=== PATIENT | male | born 1955 | race Caucasian/White ===

== ENCOUNTER 2017-02-28 18:38 | Emergency (ER) | payer OTHER ==
[~2017-02-28] VITALS: Ht 188 cm; Wt 112.0 kg
[2017-02-28] MEDS ORDERED: SPIR1CAP INH (18:46)
--- NOTE | 2017-02-28 22:30 | REPUSA ---
Clinical history: right groin region. Findings: Real-time ultrasound imaging of the right groin region was performed. There is a complex f luid collection at the site of concern, within the subcutaneous tissues, measuring 2.2 x 0.5 x 0.9 cm . Surrounding edema seen throughout the surrounding soft tissues. No evidence of calcifications are a ppreciated. No other gross abnormalities. Impression: Loculated luid collection in the subcutaneous tissues of the right groin, considered an a bscess until proven otherwise. Clinical correlation is recommended.
[2017-02-28] MEDS ORDERED: PIPERACILLIN/TAZOBACTAM SOD 3.375 GM in D5W MINI-BAG PLUS 50 ML IV ONE (22:45)
[2017-02-28] MEDS ORDERED: LIDOCAINE W/EPINEPHRINE 1% 20ML VIAL SC ONE (23:30)
[2017-03-01] MEDS ORDERED: AUGM500T34 PO (00:05)
[2017-03-01 00:12] VITALS: BP 116/71
== END 2017-03-01 00:38 | disposition home or self-care (01) ==
LOC: M ED 19:43
DX: L02.214 Cutaneous abscess of groin (principal); J44.9 Chronic obstructive pulmonary disease, unspecified; F17.200 Nicotine dependence, unspecified, uncomplicated; Z90.49 Acquired absence of other specified parts of digestive tract; Z79.51 Long term (current) use of inhaled steroids
CPT/HCPCS: 10060; 76857; 87070; 87077; 96374; 99283; J2543

== ENCOUNTER → 2017-04-12 | Outpatient (CLI) | payer OTHER ==
[~2017-04-12] VITALS: Ht 188 cm; Wt 113.4 kg
[~2017-04-12] MED LIST: AUGM500T34 PO; LIDOCAINE 2% INJ 100 MG/5 ML SDV (FOR ANES.) As Ordered ONE; NS 1,000 ML IV ONE; PROPOFOL 500 MG/50 ML VIAL As Ordered ONE; SPIR1CAP INH
--- NOTE | 2017-04-12 10:34 | ROOR ---
Patient Name: Siddhartha Sarkar Procedure Date: 04/12/2017 10:13 AM Date of : 1955 Age: 61 Room: [facility] Gender: Male Note Status: Finalized Procedure: Colonoscopy Indications: High risk colon cancer surveillance: Personal history of colonic polyps, Last colonoscopy: January 2014 Providers: Kristian EDWARDS MD Referring MD: BRIAN SANON JR, MD Requesting Provider: Medicines: Sedation Required Anesthesia Staff Assistance, Monitored Anesthesia Care Complications: No immediate complications. Procedure: Pre-Anesthesia Assessment: - The heart rate, respiratory rate, oxygen saturations, blood pressure, adequacy of pulmonary ventilation, and response to care were monitored throughout the procedure. The Colonoscope was introduced through the anus and advanced to the cecum, identified by appendiceal orifice and ileocecal valve. The colonoscopy was performed without difficulty. The patient tolerated the procedure well. The quality of the bowel preparation was good. Findings: The perianal and digital rectal examinations were normal. Two sessile polyps were found in the hepatic flexure and ascending colon. The polyps were diminutive in size. These polyps were removed with a cold snare. Resection and retrieval were complete. A 5 mm polyp was found in the sigmoid colon. The polyp was pedunculated. The polyp was removed with a hot snare. Resection and retrieval were complete. Small Internal Hemorrhoids. The exam was otherwise without abnormality on direct and retroflexion views. Impression: - Two diminutive polyps at the hepatic flexure and in the ascending colon, removed with a cold snare. Resected and retrieved. - One 5 mm polyp in the sigmoid colon, removed with a hot snare. Resected and retrieved. - Small Internal Hemorrhoids. - The examination was otherwise normal on direct and retroflexion views. Recommendation: - Repeat colonoscopy in 3 years for adenoma surveillance. Kristian Edwards MD Kristian EDWARDS MD 04/12/2017 10:34:27 AM This report has been signed electronically. Number of Addenda: 0 Note Initiated On: 04/12/2017 10:13 AM Estimated Blood Loss: Estimated blood loss: none.
[2017-04-12 10:58] VITALS: BP 142/77
== END ==
LOC: M OPP 08:28
PROVIDERS: ATTEND Internal Medicine Gastroenterology
DX: D12.2 Benign neoplasm of ascending colon (principal); D12.3 Benign neoplasm of transverse colon; D12.5 Benign neoplasm of sigmoid colon; K64.0 First degree hemorrhoids; Z86.010 Personal history of colon polyps; J44.9 Chronic obstructive pulmonary disease, unspecified; Z72.0 Tobacco use; Z79.899 Other long term (current) drug therapy

== ENCOUNTER → 2017-09-04 | Outpatient (CLI) | payer OTHER ==
[~2017-09-04] MED LIST changes: -LIDOCAINE 2% INJ 100 MG/5 ML SDV (FOR ANES.) As Ordered ONE; -NS 1,000 ML IV ONE; -PROPOFOL 500 MG/50 ML VIAL As Ordered ONE
--- NOTE | 2017-09-05 14:31 | REP ---
Clinical: Rib injury. Technique: Frontal view of the chest with multiple views of the left hemithorax. Findings: Frontal view of the chest demonstrates no acute cardiopulmonary process, contusion, effusion, or pneumothorax. Multiple views of the left hemithorax demonstrates no obvious or displaced rib fracture. However, a subtle injury involving the lateral aspect of the seventh rib cannot be excluded. Impression: No definite or displaced rib fracture. Cannot exclude subtle injury involving the lateral aspect of the seventh rib. Signed by Diego Abdi MD 09/04/2017 11:16 P
== END ==
LOC: M WUC 17:01
PROVIDERS: ATTEND Physician Assistant
DX: S20.20XA Contusion of thorax, unspecified, initial encounter (principal); X58.XXXA Exposure to other specified factors, initial encounter; Y92.89 Other specified places as the place of occurrence of the external cause; Y93.89 Activity, other specified; Y99.8 Other external cause status

== ENCOUNTER → 2018-05-28 | Outpatient (CLI) | payer OTHER ==
[~2018-05-28] MED LIST changes: -AUGM500T34 PO; +GASTROGRAFIN SOLUTION 30ML (Q9963) As Ordered; +ISOVUE-370 76% 100ML VIAL (Q9967) As Ordered; -SPIR1CAP INH
== END ==
LOC: M RAD 12:14
DX: D75.1 Secondary polycythemia (principal)
CPT/HCPCS: Q9963

== ENCOUNTER → 2018-06-03 | Outpatient (REF) | payer OTHER ==
[2018-06-03 13:31] LABS: CARBOXYHEMOGLOBIN 5.5 % (0.0-1.5)
== END ==
LOC: M LAB REF 13:23
DX: D75.1 Secondary polycythemia (principal); F17.200 Nicotine dependence, unspecified, uncomplicated

== ENCOUNTER 2018-06-27 08:56 | Emergency (ER) | payer OTHER | END 2018-06-27 10:21 | disposition home or self-care (01) | LOC: M ED 08:56 | DX: S06.0X0A Concussion without loss of consciousness, initial encounter (principal); W10.9XXA Fall (on) (from) unspecified stairs and steps, initial encounter; Y92.009 Unspecified place in unspecified non-institutional (private) residence as the place of occurrence of the external cause; J44.9 Chronic obstructive pulmonary disease, unspecified; D75.1 Secondary polycythemia; F17.210 Nicotine dependence, cigarettes, uncomplicated; Z98.890 Other specified postprocedural states; Z79.82 Long term (current) use of aspirin | CPT/HCPCS: 70450 ==

== ENCOUNTER → 2019-06-09 | Outpatient (CLI) | payer OTHER ==
[~2019-06-09] MED LIST changes: +ASPI81CH33 PO; +AUGM500T34 PO; -GASTROGRAFIN SOLUTION 30ML (Q9963) As Ordered; -ISOVUE-370 76% 100ML VIAL (Q9967) As Ordered; +SPIR1CAP INH
--- NOTE | 2019-06-10 01:43 | REP ---
Clinical: Lower back pain. Technique: AP, lateral, bilateral oblique and coned-down views of the lumbosacral spine. Findings: Age-related osteopenia and chronic anterolisthesis at the L3-4 level along with moderate multilevel degenerative changes remain stable as compared to the CT dated 05/28/2018. Subtle chronic compression deformity at T11 also appears chronic/nonacute. No obvious acute fracture / compression injury or subluxation noted. Impression: Moderate osteopenia and chronic degenerative changes remain essentially stable compared to 05/28/2018. No new acute fracture / compression injury or subluxation identified. Electronically Signed by Diego Abdi MD 06/10/2019 01:35 A
== END ==
LOC: M WUC 15:59
PROVIDERS: ATTEND Nurse Practitioner Family
DX: M54.5 Low back pain (principal)

== ENCOUNTER 2020-03-05 08:05 | Emergency (ER) | payer OTHER ==
[~2020-03-05] VITALS: Ht 188 cm; Wt 113.6 kg
[2020-03-05] MEDS ORDERED: INCR1INH (08:14)
[2020-03-05] MEDS ORDERED: KETOROLAC 30 MG/ML 1ML VIAL IV ONE (08:15)
[2020-03-05] MEDS ORDERED: diazePAM 10MG/2ML SYRINGE (J3360 PER 5MG) IV ONE (08:15)
[2020-03-05] MEDS ORDERED: VALI2TAB PO (09:49)
[2020-03-05] MEDS ORDERED: NAPR250T4 PO (09:50)
[2020-03-05 10:13] VITALS: BP 135/88
== END 2020-03-05 10:14 | disposition home or self-care (01) ==
LOC: EDBD 08:05 → M ED 08:05
DX: S29.012A Strain of muscle and tendon of back wall of thorax, initial encounter (principal); X50.3XXA Overexertion from repetitive movements, initial encounter; Y92.096 Garden or yard of other non-institutional residence as the place of occurrence of the external cause; J44.9 Chronic obstructive pulmonary disease, unspecified; D75.1 Secondary polycythemia; F17.200 Nicotine dependence, unspecified, uncomplicated; Z79.82 Long term (current) use of aspirin
CPT/HCPCS: 96374; 96375; 99284; J1885; J3360

== ENCOUNTER → 2020-10-17 | Outpatient (CLI) | payer OTHER ==
[~2020-10-17] MED LIST changes: +INCR1INH; +NAPR250T4 PO; +VALI2TAB PO
== END ==
LOC: M LABSMTC 08:08
PROVIDERS: ATTEND Anesthesiology
DX: Z01.812 Encounter for preprocedural laboratory examination (principal); Z20.822 Contact with and (suspected) exposure to COVID-19

== ENCOUNTER 2020-10-22 08:59 | Day surgery (SDC) | payer OTHER ==
[~2020-10-22] VITALS: Ht 188 cm; Wt 117.0 kg
[~2020-10-22 08:59] MED LIST changes: +NS 1,000 ML IV ONE
--- OUTSIDE RECORDS SUMMARY | 2020-10-22 09:07 | CCD | Continuity of Care Document ---
Author Author Siddhartha Cooper MD Organization Unknown Address [address] [facility] [address] [place] [address] Phone [phone] Care Team Providers Care Countersinker Name Role Phone Suresh Cooper JR, MD AUTM Unavailable Problems Active Problems Provider Date Obesity Suresh Cooper MD Onset: 03/31/2013 Benign neoplasm of colon Suresh Cooper MD Onset: 2012 Social History Type Date Description Comments Sex Unknown ETOH Use Drinks 2 Alcoholic Beverages Per Day LIQUOR Tobacco Use Start: Unknown Patient is a current smoker, smo kes every day PACK/DAY Allergies, Adverse Reactions, Alerts Description No Known Drug Allergies Medications Active Medications SIG Qnty Indications Ordering Provide r Date Aspir-Low 81mg Tablets DR 1 by mouth every day Suresh Cooper MD 07/14/2019 Incruse Ellipta 62.5mcg/Inh Aeroso l Inhale One puff By Mouth Every Day 90units SHAWNA Fonseca JR 03/13/2019 No OTC Meds Suresh Cooper MD Medications Administered in Office Medication SIG Qnty Indications Ordering Provider Date Immunization Adminstration,1 Vaccine/Tox oid Injection Suresh Cooper MD 2019 Immunizations CPT Code Status Date Vaccine Lot # [id number] Given 07/16/2020 Influenza Vaccin e Quadrivalent Preser/Antibiotic Free Im Use [id number] Given 07/14/2019 Influenza Vaccin e Quadrivalent Preser/Antibiotic Free Im Use [id number] Vital Signs Date Vital Result Comment 07/16/2020 1:54pm BP Systolic 136 mmHg BP Diastolic 80 mmHg Heart Rate 72 /min Height 73.25 inches 6'1.25" Weight 256.00 lb BMI (Body Mass Index) 33.5 kg/m2 07/14/2019 3:00pm BP Systolic 130 mmHg BP Diastolic 78 mmHg Heart Rate 72 /min Height 73.25 inches 6'1.25" Weight 249.00 lb BMI (Body Mass Index) 32.6 kg/m2 Results Test Acquired Date Facility Test Result H/L Range Note Complete Blood Count 07/16/2020 [facility] [place]: [place] [address] [phone] WBC 8.7 x10*3/UL 4.1 - 10.9 1 RBC 5.36 x10*6/UL 4.20 - 6.30 Hemoglobin 19.0 g/dL High 12.0 - 18.0 Hematocrit 56.0 % High 37.0 - 51.0 MCV 104.4 fL High 80.0 - 97.0 MCH 35.5 pg High 26.0 - 32.0 MCHC 34.0 g/dL 31.0 - 38.0 RDW 13.9 % High 11.6 - 13.7 PLT 240 x10*3/UL 140 - 440 MPV 7.4 FL Low 7.8 - 11.0 Lymph % 18.9 % 10.0 - 58.5 Mid % 5.0 % 1.7 - 9.3 Neut % 76.1 % 37.0 - 92.0 Lymph # 1.6 x10*3/UL 0.6 - 4.1 Mid # 0.5 x10*3/UL 0.1 - 0.6 Neut # 6.6 x10*3/UL 2.0 - 7.8 A1c 07/16/2020 [facility] [place]: [place] [address] [phone] Hba1c 5.5 % <5.7 2 Est Avg Glucose 111 mg/dL High 60 - 110 Comprehensive Chem Profile 07/16/2020 [facility] [place]: [place] [address] [phone] Glucose 112 mg/dL High 74 - 99 3 BUN 10 mg/dL 7 - 18 Creatinine 1.1 mg/dL 0.6 - 1.3 Sodium 136 mEq/L 136 - 145 Potassium 3.8 mEq/L 3.5 - 5.1 Chloride 99 mEq/L 98 - 107 Carbon Dioxide 32 mEq/L 21 - 32 Calcium 8.8 mg/dL 8.5 - 10.1 Alk. Phosphatase 76 mg/dL 46 - 116 Total Bilirubin 1.9 mg/dL High 0.2 - 1.0 4 Ast (Sgot) 59 U/L High 15 - 37 Alt (SGPT) 64 U/L 12 - 78 Albumin 3.8 g/dL 3.4 - 5.0 Total Protein 7.4 g/dL 6.4 - 8.2 A/G Ratio 1.06 CALC 1.00 - 1.90 GFR >= 60 mL/min >60 GFR >= 60 mL/min >60 5 Lipid Profile 07/16/2020 [facility] [employer] [place]: [place] [address] [phone] Cholesterol 194 mg/dL 131 - 200 Triglycerides 154 mg/dL High 30 - 150 HDL Cholesterol 48 mg/dL 35 - 60 LDL (Calculated) 115 CALC 50 - 159 Laboratory test finding 07/16/2020 [facility] [employer] [place]: [place] [address] [phone] PSA 1.80 ng/mL <4.00 6 1 NOTE: RESULT VERIFIED. 2 Lab Result Notes: Pre-Diabetes 5.7 - 6.4 % Diabetes = or > 6.5% 3 100-125 mg/dL PRE-DIABET ES/FASTING >126 mg/dL DIABETES/FASTING 4 NOTE: T.BILI,AST, VERIFIED 5 CHRONIC KIDNEY DISEASE STAGI NG PER NKF STAGE I & II GFR >= 60 NORMAL TO MILDLY DECREASED STAGE III GFR 30-59 MODERATELY DECREASED STAGE IV GFR 15-29 SEVERELY DECREASED STAGE V GFR <15 VERY LITTLE GFR LEFT ESRD GFR <15 ON POINT OF CARE TECHNICIAN 6 This assay was performed on the Siemens Dimension EXL using the B- Galactosidase/CPRG methodology and should not be compared interchangeably with other methods. The PSA should not be used alone as a screening test for the presence or absence of malignant disease. Procedures Date Code Description Status 07/16/2020 92698 EKG/Interpretation & Report Comp leted 04/12/2017 [id number] Colonoscopy Completed 02/13/2014 [id number] Colonoscopy Completed Medical Devices Description No Information Available Encounters Type Date Location Provider Dx Diagnosis Office Visit 07/16/2020 2:00p [facility] Suresh Cooper MD Z00.01 Encounter for general adult medical exam w abnormal findings R73.09 Other abnormal glucose E78.1 Pure hyperglyceridemia J44.9 Chronic obstructive pulmonar y disease, unspecified F17.210 Nicotine dependence, cigaret stan, uncomplicated Z71.6 Tobacco abuse counseling D75.1 Secondary polycythemia Z12.5 Encounter for screening for malignant neoplasm of prostate E66.09 Other obesity due to excess calories Z68.33 Body mass index [BMI] 33.0-3 3.9, adult Z23 Encounter for immunization Assessments Date Code Description Provider 07/16/2020 Z00.01 Encounter for genera l adult medical examination with abnormal findings Suresh Cooper MD 07/16/2020 R73.09 Other abnormal glucose Suresh Cooper MD 07/16/2020 E78.1 Pure hyperglyceridemia Suresh Cooper MD 07/16/2020 J44.9 Chronic obstructive pulmonary di sease, unspecified Suresh Cooper MD 07/16/2020 F17.210 Nicotine dependence, cigarettes, uncomplicated Suresh Cooper MD 07/16/2020 Z71.6 Tobacco abuse counseling Suresh Cooper MD 07/16/2020 D75.1 Secondary polycythemia Suresh Cooper MD 07/16/2020 Z12.5 Encounter for screening for deana gnant neoplasm of prostate Suresh Cooper MD 07/16/2020 E66.09 Other obesity due to excess rangel lalo Suresh Cooper MD 07/16/2020 Z68.33 Body mass index [BMI] 33.0-33.9, adult Suresh Cooper MD 07/16/2020 Z23 Encounter for immunization Colli tristan Cooper MD Plan of Treatment Future Appointment(s):* 07/18/2021 11:00 am - Suresh Cooper MD at [facility] 07/16/2020 - Suresh Cooper MD* Z00.01 Encounter for general adult medical examination with abnormal findings * R73.09 Other abnormal glucose * E78.1 Pure hyperglyceridemia * J44.9 Chronic obstructive pulmonary disease, unspecified * F17.210 Nicotine dependence, cigarettes, uncomplicated* Comments:* Smoking cessation discussed. 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
--- OUTSIDE RECORDS SUMMARY | 2020-10-22 09:08 | CCD ---
Author Author [facility] Organization [facility] Address Unknown Phone Unavailable Care Team Providers Care Residential Substance Abuse Counselor Name Role Phone Prince Cooper MD Unavailable Unavailable Prince Cooper MD Unavailable Unavailable Prince Cooper MD Unavailable Unavailable Prince Cooper MD Unavailable Unavailable Prince Cooper MD Unavailable Unavailable Prince Cooper MD Unavailable Unavailable Prince Cooper MD Unavailable Unavailable Prince Cooper MD Unavailable Unavailable Prince Cooper MD Unavailable Unavailable Prince Cooper MD Unavailable Unavailable Prince Cooper MD Unavailable Unavailable Prince Cooper MD Unavailable Unavailable Prince Cooper MD Unavailable Unavailable Prince Cooper MD Unavailable Unavailable Prince Cooper MD Unavailable Unavailable Prince Cooper MD Unavailable Unavailable Prince Cooper MD Unavailable Unavailable Prince Cooper MD Unavailable Unavailable Prince Cooper MD Unavailable Unavailable Prince Cooper MD Unavailable Unavailable Prince Cooper MD Unavailable Unavailable Prince Cooper MD Unavailable Unavailable Vega BajaPrince MD Unavailable Unavailable KennethPrince MD Unavailable Unavailable Vega BajaPrince MD Unavailable Unavailable Vega BajaPrince MD Unavailable Unavailable KennethPrince MD Unavailable Unavailable Vega BajaPrince MD Unavailable Unavailable Vega BajaPrince MD Unavailable Unavailable Vega BajaPrince MD Unavailable Unavailable Vega BajaPrince MD Unavailable Unavailable Vega BajaPrince MD Unavailable Unavailable Vega BajaPrince MD Unavailable Unavailable Vega BajaPrince MD Unavailable Unavailable Vega BajaPrince MD Unavailable Unavailable KennethPrince MD Unavailable Unavailable KennethPrince MD Unavailable Unavailable KennethPrince MD Unavailable Unavailable Vega BajaPrince MD Unavailable Unavailable Vega BajaPrince MD Unavailable Unavailable Vega BajaPrince MD Unavailable Unavailable KennethPrince MD Unavailable Unavailable KennethPrince MD Unavailable Unavailable Vega BajaPrince MD Unavailable Unavailable Vega BajaPrince MD Unavailable Unavailable KennethPrince MD Unavailable Unavailable KennethPrince MD Unavailable Unavailable Vega BajaPrince MD Unavailable Unavailable KennethPrince MD Unavailable Unavailable KennethPrince MD Unavailable Unavailable KennethPrince MD Unavailable Unavailable KennethPrince MD Unavailable Unavailable Vega BajaPrince MD Unavailable Unavailable KennethPrince MD Unavailable Unavailable KennethPrince MD Unavailable Unavailable Vega BajaPrince MD Unavailable Unavailable KennethPrince MD Unavailable Unavailable KennethPrince layne MD Unavailable Unavailable Vega BajaPrince layne MD Unavailable Unavailable KennethPrince MD Unavailable Unavailable KennethPrince layne MD Unavailable Unavailable KennethPrince MD Unavailable Unavailable Vega BajaPrince MD Unavailable Unavailable KennethPrince layne MD Unavailable Unavailable KennethPrince layne MD Unavailable Unavailable Vega BajaPrince layne MD Unavailable Unavailable Vega BajaPrince MD Unavailable Unavailable Vega BajaPrince MD Unavailable Unavailable KennethPrince MD Unavailable Unavailable Vega BajaPrince MD Unavailable Unavailable Vega BajaPrince MD Unavailable Unavailable Vega BajaPrince MD Unavailable Unavailable Vega BajaPrince MD Unavailable Unavailable Vega BajaPrince MD Unavailable Unavailable KennethPrince MD Unavailable Unavailable Vega BajaPrince MD Unavailable Unavailable Vega BajaPrince MD Unavailable Unavailable Vega BajaPrince MD Unavailable Unavailable Kenneth, Prince Suresh ELLINGTON Unavailable Unavailable Kenneth, Prince Suresh ELLINGTON Unavailable Unavailable Kenneth, Prince Suresh ELLINGTON Unavailable Unavailable Kenneth, Prince Suresh ELLINGTON Unavailable Unavailable Vega Baja, Prince Suresh ELLINGTON Unavailable Unavailable Kenneth, Prince Suresh ELLINGTON Unavailable Unavailable Vega Baja, Prince Suresh ELLINGTON Unavailable Unavailable Vega Baja, Prince Suresh ELLINGTON Unavailable Unavailable LETTIERE, A ZOHREH PA Unavailable Unavailable LETTIERE, A ZOHREH PA Unavailable Unavailable LETTIERE, A ZOHREH PA Unavailable Unavailable LETTIERE, A ZOHREH PA Unavailable Unavailable LETTIERE, A ZOHREH PA Unavailable Unavailable LETTIERE, A ZOHREH PA Unavailable Unavailable LETTIERE, A ZOHREH PA Unavailable Unavailable LETTIERE, A ZOHREH PA Unavailable Unavailable LETTIERE, A ZOHREH PA Unavailable Unavailable LETTIERE, A ZOHREH PA Unavailable Unavailable LETTIERE, A ZOHREH PA Unavailable Unavailable LETTIERE, A ZOHREH PA Unavailable Unavailable LETTIERE, A ZOHREH PA Unavailable Unavailable LETTIERE, A ZOHREH PA Unavailable Unavailable LETTIERE, A ZOHREH PA Unavailable Unavailable LETTIERE, A ZOHREH PA Unavailable Unavailable LETTIERE, A ZOHREH PA Unavailable Unavailable LETTIERE, A ZOHREH PA Unavailable Unavailable LETTIERE, A ZOHREH PA Unavailable Unavailable LETTIERE, A ZOHREH PA Unavailable Unavailable LETTIERE, A ZOHREH PA Unavailable Unavailable LETTIERE, A ZOHREH PA Unavailable Unavailable LETTIERE, A ZOHREH PA Unavailable Unavailable LETTIERE, A ZOHREH PA Unavailable Unavailable LETTIERE, A ZOHREH PA Unavailable Unavailable LETTIERE, A ZOHREH PA Unavailable Unavailable LETTIERE, A ZOHREH PA Unavailable Unavailable LETTIERE, A ZOHREH PA Unavailable Unavailable LETTIERE, A ZOHREH PA Unavailable Unavailable Re-disclosure Warning The records that you are about to access may contain information from federally-assisted alcohol or drug abuse programs. If such information is present, then the following federally mandated warning applies: This information has been disclosed to you from records protected by federal confidentiality rules (42 CFR part 2). The federal rules prohibit you from making any further disclosure of this information unless further disclosure is expressly permitted by the written consent of the person to whom it pertains or as otherwise permitted by 42 CFR part 2. A general authorization for the release of medical or other information is NOT sufficient for this purpose. The Federal rules restrict any use of the information to criminally investigate or prosecute any alcohol or drug abuse patient.The records that you are about to access may contain highly sensitive health information, the redisclosure of which is protected by Article 27-F of the [facility] Public Health law. If you continue you may have access to information: Regarding HIV / AIDS; Provided by facilities licensed or operated by the [facility] Office of Mental Health; or Provided by the [facility] Office for People With Developmental Disabilities. If such information is present, then the following [facility] mandated warning applies: This information has been disclosed to you from confidential records which are protected by state law. State law prohibits you from making any further disclosure of this information without the specific written consent of the person to whom it pertains, or as otherwise permitted by law. Any unauthorized further disclosure in violation of state law may result in a fine or penitentiary sentence or both. A general authorization for the release of medical or other information is NOT sufficient authorization for further disc losure. Family History Family Member Name Family Member Gender Family Member Status Date o f Status Description Data Source(s) Unknown Unknown Problem [facility] ([facility]) father (colon, skin, prostate) Unknown Unknown Problem [facility] ([facility]) Unknown Female Problem [facility] ([facility]) Unknown Unknown Encounters Encounter Providers Location Date Indications Data Source(s ) Outpatient Attender: Suresh Hilton 02:00:00 PM EDT [facility] ([facility] ) Outpatient Attender: ZOHREH terrazas 08/26/2019 11:00:00 AM EST [facility] ([facility]) Immunizations Vaccine Date Status Description Data Source(s) Influenza, injectable, MDCK, preservative free, eren valent 07/16/2020 02:07:00 PM EDT completed [facility] ([facility]) Medications Medication Brand Name Start Date Product Form Dose Route Admi nistrative Instructions Pharmacy Instructions Status Indications Reaction Description Data Source(s) Immunization Adminstration,1 Vaccine/Toxoid 07/16/2020 12:00 :00 AM EDT completed [facility] ([facility]) Medication administered onsite 17 gram/dose 05/07/2020 12:00:00 AM EDT powder 510 USE 17GM BY MOUTH ONCE DAILY USE 17GM BY MOUTH ONCE DAILY SOLD: 05/10/2020 [facility] 17.5-3.13-1.6 gram 05/07/2020 12:00:00 AM EDT recon soln 354 TAKE PER DOCTORS BOWEL PREP INSTRUCTIONS TAKE PER DOCTORS BOWEL PREP INSTRUCTIONS SOLD: 05/10/2020 [facility] Magnesium Hydroxide 80 MG/ML Oral Suspension Milk Of Magnesi a 05/07/2020 12:00:00 AM EDT ORAL active M EDENT ([facility], ) POLYETHYLENE GLYCOL 3350 142 MG/ML Oral Solution [Miralax] M iralax 05/07/2020 12:00:00 AM EDT ORAL active M EDENT ([facility], ) Suprep Bowel Prep Kit Suprep Bowel Prep Kit 05/07/2020 12:00:00 AM EDT active [facility] ([facility], ) 62.5 mcg/actuation 04/12/2020 12:00:00 AM EDT blister with d evice 30 INHALE ONE PUFF BY MOUTH EVERY DAY INHALE ONE PUFF BY MOUTH EVERY DAY SOLD: 08/27/2020 [facility] 62.5 mcg/actuation 04/12/2020 12:00:00 AM EDT blister with d evice 30 INHALE ONE PUFF BY MOUTH EVERY DAY INHALE ONE PUFF BY MOUTH EVERY DAY SOLD: 04/15/2020 [facility] 250 mg 03/05/2020 12:00:00 AM EDT tablet 14 TAKE ONE TABLET BY MOUTH TWICE A DAY NEEDED FOR PAIN TAKE ONE TABLET BY MOUTH TWICE A DAY NEEDED FOR DALY N SOLD: 03/05/2020 [facility] 2 mg 03/05/2020 12:00:00 AM EDT tablet 6 TAKE ONE TABLET BY MOUTH TWICE A DAY NEEDED FOR ANXIETY MAXIMUM DAILY DOSE = 2 TABLETS TAKE ONE TABLET BY MOUTH TWICE A DAY NEEDED FOR ANXIETY MAXIMUM DAILY DOSE = 2 TABLETS SOLD: 03/05/2020 [facility] Prednisone 20 MG Oral Tablet Prednisone 08/26/2019 12:00:00 AM EST active [facility] ([facility]) 20 mg 08/26/2019 12:00:00 AM EST tablet 18 TAKE ONE TABLET BY MOUTH THREE TIMES A DAY FOR 3 DAYS THEN 1 TWO TIMES A DAY FOR 3 DAYS THEN 1 ONCE DAILY FOR 3 DAYS TAKE ONE TABLET BY MOUTH THREE TIMES A D AY FOR 3 DAYS THEN 1 TWO TIMES A DAY FOR 3 DAYS THEN 1 ONCE DAILY FOR 3 DAYS SOLD: 08/26/2019 [facility] Doxycycline Monohydrate 100 MG Oral Tablet Doxycycline Monoh ydrate 08/26/2019 12:00:00 AM EST ORAL active M SIND[facility] ([facility]) 100 mg 08/26/2019 12:00:00 AM EST tablet 20 TAKE ONE TABLET BY MOUTH TWICE A DAY FOR 10 DAYS TAKE ONE TABLET BY MOUTH TWICE A DAY FOR 10 DAYS SOLD: 08/26/2019 [facility] 62.5 mcg/actuation 03/21/2019 12:00:00 AM EDT blister with d evice 90 INHALE ONE PUFF BY MOUTH EVERY DAY INHALE ONE PUFF BY MOUTH EVERY DAY SOLD: 08/26/2019 [facility] 62.5 mcg/actuation 03/21/2019 12:00:00 AM EDT blister with d evice 90 INHALE ONE PUFF BY MOUTH EVERY DAY INHALE ONE PUFF BY MOUTH EVERY DAY SOLD: 01/05/2020 [facility] Insurance Providers Payer name Policy type / Coverage type Policy ID Covered alliance party ID Covered alliance party's relationship to baugh Policy Baugh Plan Information [facility] [id number] WI2 [id number] UMR O [id number] S [id number] UMR U [id number] Spouse [id number] [facility] [id number] WI2 [id number] [place]/[employer] (Old) Medigap Part B [id number] Family Dependent [id number] Umr (New [place]) Commercial [id number] Family Dependent [id number] UMR U [id number] Spouse [id number] [place] (pr) Medigap Part B [id number] Family Dependent [id number] Umr (pr) Commercial [id number] Fa brianna Dependent [id number] Umr [place] Ppo Commercial [id number] Family Dependent [id number] POMCO [id number] WI2 [id number] [place] Commercial [id number] Family Dependent [id number] POMCO [id number] WI2 [id number] [place] Ppo Commercial [id number] Family Dependent [id number] [place] Ppo Commercial [id number] Family Dependent [id number] [place] Ppo Commercial [id number] Family Dependent [id number] [place] [employer] (HMO) [id number] Fa brianna Dependent [id number] [place] (pr) Commercial Self [place] Ppo Commercial [id number] Family Dependent [phone] POMCO [id number] WI2 [id number] [place] Commercial Family Dependent [employer] PPO P [id number] P [id number] [employer]-O/P [id number] 01 [id number] Surgeries/Procedures Procedure Description Date Indications Data Source(s) ECG ROUTINE ECG W/LEAST 12 LDS W/I&R 07/16/2020 12:00: 00 AM EDT [facility] ([facility]) Results ID Date Data Source [id number] 10/17/2020 08:20:00 AM EST [facility] Name Value Range Interpretation Code Description Data Lisa rce(s) Supporting Document(s) SARS coronavirus 2 RNA Not Detected [facility] [place] This lab was ordered by [facility] and reported by [facility]. ID Date Data Source [id number] 07/16/2020 02:35:00 PM EDT [facility] Name Value Range Interpretation Code Description Data Lisa rce(s) Supporting Document(s) Prostate specific Ag [Mass/volume] in Serum or Plasma 1.80 ng/mL [facility] ([facility]) This assay was performed on the Siemens Dimension EXL using the B- Galactosidase/CPRG methodology and should not be compared interchangeably with other methods. The PSA should not be used alone as a screening test for the presence or absence of malignant disease. ID Date Data Source [id number] 07/16/2020 02:35:00 PM EDT [facility] ([facility]) Name Value Range Interpretation Code Description Data Lisa rce(s) Supporting Document(s) Cholesterol [Mass/volume] in Serum or Plasma 194 mg/dL 131-200 [facility] ([facility]) Cholesterol in LDL [Mass/volume] in Serum or Plasma by calcu lation 115 CALC 50-159 [facility] ([facility]) Triglyceride [Mass/volume] in Serum or Plasma 154 mg/dL 30-150 [facility] ([facility]) Cholesterol in HDL [Mass/volume] in Serum or Plasma 48 mg/dL 35-60 [facility] ([facility]) ID Date Data Source [id number] 07/16/2020 02:35:00 PM EDT [facility] ([facility]) Name Value Range Interpretation Code Description Data Lisa rce(s) Supporting Document(s) Urea nitrogen [Mass/volume] in Serum or Plasma 10 mg/dL 7-18 [facility] ([facility]) Glucose [Mass/volume] in Serum or Plasma 112 mg/dL 74-99 [facility] ([facility]) 100-125 mg/dL PRE-DIABETES/FASTING >126 mg/dL DIABETES/FASTING Creatinine 1.1 mg/dL 0.6-1.3 [facility] ([facility]) Sodium [Moles/volume] in Serum or Plasma 136 meq/L 136-145 [facility] ([facility]) Potassium [Moles/volume] in Serum or Plasma 3.8 meq/L 3.5-5.1 [facility] ([facility]) Carbon dioxide, total [Moles/volume] in Serum or Plasma 32 meq/L 21 -32 [facility] ([facility]) Chloride [Moles/volume] in Serum or Plasma 99 meq/L 98-107 [facility] ([facility]) Calcium [Mass/volume] in Serum or Plasma 8.8 mg/dL 8.5-10.1 [facility] ([facility]) Alkaline phosphatase isoenzyme [Units/volume] in Serum or Pl asma 76 mg/dL 46-116 [facility] ([facility]) Aspartate aminotransferase [Enzymatic activity/volume] in Serum or Plasma 59 U/L 15-37 [facility] ([facility] ) Total Bilirubin 1.9 mg/dL 0.2-1.0 [facility] ([facility]) NOTE: T.BILI,AST, VERIFIED Alanine aminotransferase [Enzymatic activity/volume] in Seru m or Plasma 64 U/L 12-78 [facility] ([facility]) Proteinase 3 Ab [Units/volume] in Serum 7.4 g/dL 6.4-8.2 [facility] ([facility]) Albumin [Mass/volume] in Serum or Plasma 3.8 g/dL 3.4-5.0 [facility] ([facility]) A/G Ratio 1.06 CALC 1.00-1.90 [facility] ([facility]) Glomerular filtration rate/1.73 sq M pre dicted among non-blacks [Volume Rate/Area] in Serum or Plasma by Creatinine-based formula (MDRD) Laboratory test result [facility] ([facility] Glomerular filtration rate/1.73 sq M pre dicted among blacks [Volume Rate/Area] in Serum or Plasma by Creatinine-based formula (MDRD) Laboratory test result [facility] ([facility]) <content>CHRONIC KIDNEY DISEASE STAGING PER NKF</content>
<content></content>
<content>STAGE I & II GFR >= 60 NORMAL TO MILDLY DECREASED</content>
<content>STAGE III GFR 30-59 MODERATELY DECREASED</content>
<content>STAGE IV GFR 15-29 SEVERELY DECREASED</content>
<content>STAGE V GFR <15 VERY LITTLE GFR LEFT</content>
<content>ESRD GFR <15 ON SOFTWARE DEVELOPMENT ENGINEER</content>
<content></content> ID Date Data Source [id number] 07/16/2020 02:35:00 PM EDT [facility] ([facility] Name Value Range Interpretation Code Description Data Lisa rce(s) Supporting Document(s) Glucose mean value [Mass/volume] in Blood Estimated fr om glycated hemoglobin 111 mg/dL 60-110 [facility] ([facility] ) Hemoglobin A1c/Hemoglobin.total in Blood 5.5 % [facility] ([facility]) Lab Result Notes: Pre-Diabetes 5.7 - 6.4 % Diabetes = or > 6.5% ID Date Data Source [id number] 07/16/2020 02:35:00 PM EDT [facility]) Name Value Range Interpretation Code Description Data Lisa rce(s) Supporting Document(s) Leukocytes [#/volume] in Blood by Automated count 8.7 x10*3/UL 4.1-10 .9 [facility] ([facility] NOTE: RESULT VERIFIED. Erythrocytes [#/volume] in Blood by Automated count 5.36 x10*6/UL 4.2 0-6.30 [facility] ([facility]) Hemoglobin [Mass/volume] in Blood 19.0 g/dL 12.0-18.0 [facility] ([facility]) MCV 104.4 fL 80.0-97.0 [facility] ([facility]) Hematocrit [Volume Fraction] of Blood by Automated count 56.0 % 3 7.0-51.0 [facility] ([facility]) MCH 35.5 pg 26.0-32.0 [facility] ([facility]) Erythrocyte distribution width [Ratio] by Automated count 13.9 % 11.6-13.7 [facility] ([facility]) MCHC 34.0 g/dL 31.0-38.0 [facility] ([facility]) MPV 7.4 FL 7.8-11.0 [facility] ([facility]) Mid % 5.0 % 1.7-9.3 [facility] ([facility]) Platelets [#/volume] in Blood by Automated count 240 x10*3/UL 140-440 [facility] ([facility]) Lymph % 18.9 % 10.0-58.5 [facility] ([facility]) Mid # 0.5 x10*3/UL 0.1-0.6 [facility] ([facility]) Lymph # 1.6 x10*3/UL 0.6-4.1 [facility] ([facility]) Neut % 76.1 % 37.0-92.0 [facility] ([facility]) Neut # 6.6 x10*3/UL 2.0-7.8 [facility] ([facility]) Procedure Vital Signs ID Date Data Source UNK Name Value Range Interpretation Code Description Data Source(s) Body mass index (BMI) [Ratio] 33.5 kg/m2 33.5 k g/m2 [facility] ([facility]) Body weight 256.00 [lb_av] 256.00 [lb_av] [facility] T ([facility]) Body height 73.25 [in_i] 73.25 [in_i] [facility] ([facility]) 6'1.25" Heart rate 72 /min 72 /min [facility] ([facility]) Diastolic blood pressure 80 mm[Hg] 80 mm[Hg] [facility] ([facility]) Systolic blood pressure 136 mm[Hg] 136 mm[Hg] [facility] ([facility]) Body weight 114.307 kg 114.307 kg [facility] ([facility]) Body mass index (BMI) [Ratio] 32.4 kg/m2 32.4 k g/m2 [facility] ([facility]) Body weight 252.00 [lb_av] 252.00 [lb_av] [facility] T ([facility]) Body height 74 [in_i] 74 [in_i] [facility] ([facility]) 6'2" Diastolic blood pressure 82 mm[Hg] 82 mm[Hg] [facility] ([facility]) Systolic blood pressure 138 mm[Hg] 138 mm[Hg] [facility] ([facility]) Body mass index (BMI) [Ratio] 32.1 kg/m2 32.1 k g/m2 [facility] ([facility]) Body height 74 [in_i] 74 [in_i] [facility] ([facility]) 6'2" Body weight 250.00 [lb_av] 250.00 [lb_av] [facility] T ([facility]) Body temperature 97.0 [degF] 97.0 [degF] [facility] ([facility]) Oxygen saturation in Arterial blood by Pulse oximetry 98 % 98 % [facility] ([facility], [facility]) Respiratory rate 16 /min 16 /min [facility] ( [facility]) Heart rate 59 /min 59 /min [facility] ([facility]) Diastolic blood pressure 84 mm[Hg] 84 mm[Hg] [facility] ([facility]) Systolic blood pressure 139 mm[Hg] 139 mm[Hg] [facility] ([facility])
--- NOTE | 2020-10-22 11:29 | ROOR ---
Patient Name: Siddhartha Sarkar Procedure Date: 10/22/2020 11:02 AM Date of : 1955 Age: 65 Room: [facility] Gender: Male Note Status: Finalized Procedure: Colonoscopy Indications: High risk colon cancer surveillance: Personal history of colonic polyps, Last colonoscopy: March 2017 Providers: Kristian EDWARDS MD Referring MD: BRIAN SANON JR, MD Requesting Provider: Medicines: Monitored Anesthesia Care Complications: No immediate complications. Procedure: Pre-Anesthesia Assessment: - The heart rate, respiratory rate, oxygen saturations, blood pressure, adequacy of pulmonary ventilation, and response to care were monitored throughout the procedure. The Colonoscope was introduced through the anus and advanced to the terminal ileum, with identification of the appendiceal orifice and IC valve. The colonoscopy was performed without difficulty. The patient tolerated the procedure well. The quality of the bowel preparation was good. Findings: The perianal and digital rectal examinations were normal. Internal hemorrhoids were found during retroflexion. The hemorrhoids were moderate. Two sessile polyps were found in the descending colon and transverse colon. The polyps were 5 to 7 mm in size. The exam was otherwise without abnormality on direct and retroflexion views. Impression: - Two 5 to 7 mm polyps in the descending colon and in the transverse colon. - Internal hemorrhoids. 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 (incidental) - The examination was otherwise normal on direct and retroflexion views. - No specimens collected. Recommendation: - Repeat colonoscopy in 3 years for surveillance. Procedure Code(s): --- Professional --- 74137, Colonoscopy, flexible; diagnostic, including collection of specimen(s) by brushing or washing, when performed (separate procedure) Diagnosis Code(s): --- Professional --- K63.5, Polyp of colon K64.8, Other hemorrhoids Z86.010, Personal history of colonic polyps CPT copyright 2019 [employer]. All rights reserved. The codes documented in this report are preliminary and upon scout executive review may be revised to meet current compliance requirements. Kristian Edwards MD Kristian EDWARDS MD 10/22/2020 11:29:32 AM Electronically signed by Kristian EDWARDS MD Number of Addenda: 0 Note Initiated On: 10/22/2020 11:02 AM Estimated Blood Loss: Estimated blood loss: none.
[2020-10-22 11:30] VITALS: BP 116/72
== END 2020-10-22 12:15 | disposition home or self-care (01) ==
LOC: M OPP 08:59
PROVIDERS: ATTEND Internal Medicine Gastroenterology
DX: Z12.11 Encounter for screening for malignant neoplasm of colon (principal); Z86.010 Personal history of colon polyps; Z80.0 Family history of malignant neoplasm of digestive organs; D12.3 Benign neoplasm of transverse colon; D12.4 Benign neoplasm of descending colon; K64.8 Other hemorrhoids; J44.9 Chronic obstructive pulmonary disease, unspecified; F17.210 Nicotine dependence, cigarettes, uncomplicated; Z79.82 Long term (current) use of aspirin; Z79.51 Long term (current) use of inhaled steroids; Z83.3 Family history of diabetes mellitus; Z80.42 Family history of malignant neoplasm of prostate; Z83.6 Family history of other diseases of the respiratory system

== ENCOUNTER 2021-08-01 17:50 | Emergency (ER) | payer OTHER ==
[~2021-08-01] VITALS: Ht 188 cm; Wt 115.5 kg
[~2021-08-01 17:50] MED LIST changes: +NAPR-849 PO; -NAPR250T4 PO; -NS 1,000 ML IV ONE
[2021-08-01 17:52] VITALS: BP 178/98
--- OUTSIDE RECORDS SUMMARY | 2021-08-01 17:58 | CCD | Continuity of Care Document ---
Author Author Siddhartha GAITAN F.N.P. Organization Unknown Address [address] [place] [address] Phone [phone] Care Team Providers Care Batch Mixer Operator Name Role Phone Suresh Cooper M.D. AUTM [phone] Problems Description No Information Available Social History Type Date Description Comments Sex Unknown ETOH Use Drinks 2 Alcoholic Beverages Per Day Tobacco Use Start: Unknown Patient is a current smoker, smo kes every day 1 pack a day Sun Exposure moderate amount of sun exposure Sun Exposure Has never used tanning bed Sun Exposure Has experienced blistering from sunburns Sun Exposure Uses > 30 SPF intermittently Allergies, Adverse Reactions, Alerts Description No Known Drug Allergies Medications Active Medications SIG Qnty Indications Ordering Provide r Date Incruse Ellipta Unknown 0 Aspir-Low Unknown Immunizations Description No Information Available Vital Signs Date Vital Result Comment 05/12/2021 1:08pm BP Systolic 124 mmHg BP Diastolic 82 mmHg Weight 250.00 lb Height 74 inches 6'2" BMI (Body Mass Index) 32.1 kg/m2 05/14/2020 2:08pm BP Systolic 123 mmHg BP Diastolic 80 mmHg Body Temperature 97.3 F Results Description No Information Available Procedures Date Code Description Status 05/12/2021 36061 Office/Outpatient Established Mo d MDM 30-39 Min Completed Medical Devices Description No Information Available Encounters Type Date Location Provider Dx Diagnosis Office Visit 05/12/2021 1:15p Main Office Ninoska Gaitan, F.N.P. D22.5 Melanocytic nevi of trunk D23.5 Other benign neoplasm of ski n of trunk D23.72 Oth benign neoplasm skin/ le ft lower limb, including hip D23.71 Oth benign neoplasm skin/ ri ght lower limb, including hip L82.1 Other seborrheic keratosis L81.4 Other melanin hyperpigmentat ion Z12.83 Encounter for screening for malignant neoplasm of skin Assessments Date Code Description Provider 05/12/2021 D22.5 Melanocytic nevi of trunk José Miguel Gaitan, F.N.P. 05/12/2021 D23.5 Other benign neoplasm of skin of trunk Ninoska Gaitan, F.N.P. 05/12/2021 D23.72 Other benign neoplas m of skin of left lower limb, including hip Ninoska Gaitan, F.N.P. 05/12/2021 D23.71 Other benign neoplas m of skin of right lower limb, including hip Ninoska Gaitan, F.N.P. 05/12/2021 L82.1 Other seborrheic keratosis Yamilet Gaitan F.N.P. 05/12/2021 L81.4 Other melanin hyperpigmentation Ninoska Gaitan, F.N.P. 05/12/2021 Z12.83 Encounter for screening for deana gnant neoplasm of skin Ninoska Gaitan F.N.P. Plan of Treatment Future Appointment(s):* 05/18/2022 12:30 pm - Ninoska Gaitan, F.N.P. at Main Office 05/12/2021 - Ninoska Gaitan F.N.P.* D22.5 Melanocytic nevi of trunk* Comments:* Nevus on trunk appear healthy. Monitor for changes. Sun protection and sunscreen use discussed. Discussed if any moles change in shape or color, itch, bleed or burn to contact the office for evaluation sooner than their interval appointment. * D23.5 Other benign neoplasm of skin of trunk* Comments:* DF - Reassurance. * D23.72 Other benign neoplasm of skin of left lower limb, including hip* Comments:* DF - Reassurance. * D23.71 Other benign neoplasm of skin of right lower limb, including hip* Comments:* DF - Reassurance. * L82.1 Other seborrheic keratosis* Comments:* Reassurance.Discussed if ever becomes irritated to call for a removal appointment. * L81.4 Other melanin hyperpigmentation* Comments:* Solar lentigines - ReassuranceDiscussed that solar lentignes appear from the sun that was received years agoSunscreen use and sun protection discussed. * Z12.83 Encounter for screening for malignant neoplasm of skin* Comments:* See above * Follow up:* Yearly/PRN - [facility] Functional Status Description No Information Available Mental Status Description No Information Available Referrals Description No Information Available
--- OUTSIDE RECORDS SUMMARY | 2021-08-01 17:58 | CCD ---
Author Author [facility] Organization [facility] Address Unknown Phone Unavailable Care Team Providers Care Sheep Killer Name Role Phone Prince Cooper MD Unavailable [...] Unavailable Unavailable Prince Cooper MD Unavailable Unavailable VeronaPrince MD Unavailable Unavailable KennethrPince MD Unavailable Unavailable KennethPrince MD Unavailable Unavailable KennethPrince MD Unavailable Unavailable KennethPrince MD Unavailable Unavailable KennethPrince MD Unavailable Unavailable VeronaPrince MD Unavailable Unavailable KennethPrince MD Unavailable Unavailable VeronaPrince MD Unavailable Unavailable KennethPrince MD Unavailable Unavailable KennethPrince MD Unavailable Unavailable VeronaPrince MD Unavailable Unavailable VeronaPrince MD Unavailable Unavailable KennethPrince MD Unavailable Unavailable KennethPrince MD Unavailable Unavailable VeronaPrince MD Unavailable Unavailable VeronaPrince MD Unavailable Unavailable KennethPrince MD Unavailable Unavailable KennethPrince MD Unavailable Unavailable VeronaPrince MD Unavailable Unavailable KennethPrince MD Unavailable Unavailable KennethPrince MD Unavailable Unavailable KennethPrince MD Unavailable Unavailable KennethPrince MD Unavailable Unavailable VeronaPrince MD Unavailable Unavailable KennethPrince MD Unavailable Unavailable VeronaPrince MD Unavailable Unavailable VeronaPrince MD Unavailable Unavailable KennethPrince MD Unavailable Unavailable KennethPrince MD Unavailable Unavailable KennethPrince MD Unavailable Unavailable KennethPrince MD Unavailable Unavailable KennethPrince MD Unavailable Unavailable KennethPrince MD Unavailable Unavailable KennethPrince MD Unavailable Unavailable VeronaPrince layne MD Unavailable Unavailable KennethPrince MD Unavailable Unavailable VeronaPrince MD Unavailable Unavailable VeronaPrince MD Unavailable Unavailable KennethPrince MD Unavailable Unavailable KennethPrince MD Unavailable Unavailable VeronaPrince MD Unavailable Unavailable VeronaPrince layne MD Unavailable Unavailable KennethPrince MD Unavailable Unavailable VeronaPrince MD Unavailable Unavailable KennethPrince MD Unavailable Unavailable VeronaPrince MD Unavailable Unavailable VeronaPrince MD Unavailable Unavailable KennethPrince MD Unavailable Unavailable KennethPrince MD Unavailable Unavailable VeronaPrince MD Unavailable Unavailable VeronaPrince MD Unavailable Unavailable VeronaPrince MD Unavailable Unavailable VeronaPrince MD Unavailable Unavailable VeronaPrince MD Unavailable Unavailable KennethPrince layne MD Unavailable Unavailable Prince Cooper MD Unavailable Unavailable Prince Cooper MD Unavailable Unavailable Prince Cooper MD Unavailable Unavailable Prince Cooper MD Unavailable Unavailable Prince Cooper MD Unavailable Unavailable Prince Cooper MD Unavailable Unavailable Prince Cooper MD Unavailable Unavailable [place], Maryann HOME SERVICE DIRECTOR Unavailable Unavailable [place], Maryann HOME SERVICE DIRECTOR Unavailable Unavailable [place], Maryann HOME SERVICE DIRECTOR Unavailable Unavailable [place], Maryann HOME SERVICE DIRECTOR Unavailable Unavailable [place], Maryann HOME SERVICE DIRECTOR Unavailable Unavailable [place], Maryann HOME SERVICE DIRECTOR Unavailable Unavailable [place], Maryann HOME SERVICE DIRECTOR Unavailable Unavailable [place], Maryann HOME SERVICE DIRECTOR Unavailable Unavailable [place], Maryann HOME SERVICE DIRECTOR Unavailable Unavailable [place], Maryann HOME SERVICE DIRECTOR Unavailable Unavailable [place], Maryann HOME SERVICE DIRECTOR Unavailable Unavailable [place], Maryann HOME SERVICE DIRECTOR Unavailable Unavailable [place], Maryann HOME SERVICE DIRECTOR Unavailable Unavailable [place], Maryann HOME SERVICE DIRECTOR Unavailable Unavailable [place], Maryann HOME SERVICE DIRECTOR Unavailable Unavailable [place], Maryann HOME SERVICE DIRECTOR Unavailable Unavailable [place], Maryann HOME SERVICE DIRECTOR Unavailable Unavailable [place], Maryann HOME SERVICE DIRECTOR Unavailable Unavailable [place], Maryann HOME SERVICE DIRECTOR Unavailable Unavailable [place], Maryann HOME SERVICE DIRECTOR Unavailable Unavailable [place], Maryann HOME SERVICE DIRECTOR Unavailable Unavailable [place], Maryann HOME SERVICE DIRECTOR Unavailable Unavailable [place], Maryann HOME SERVICE DIRECTOR Unavailable Unavailable [place], Maryann HOME SERVICE DIRECTOR Unavailable Unavailable [place], Maryann HOME SERVICE DIRECTOR Unavailable Unavailable [place], Maryann HOME SERVICE DIRECTOR Unavailable Unavailable [place], Maryann HOME SERVICE DIRECTOR Unavailable Unavailable [place], Maryann HOME SERVICE DIRECTOR Unavailable Unavailable [place], Maryann HOME SERVICE DIRECTOR Unavailable Unavailable [place], Maryann HOME SERVICE DIRECTOR Unavailable Unavailable [place], Maryann HOME SERVICE DIRECTOR Unavailable Unavailable [place], Maryann HOME SERVICE DIRECTOR Unavailable Unavailable [place], Maryann HOME SERVICE DIRECTOR Unavailable Unavailable [place], Diana Xiao HOME SERVICE DIRECTOR Unavailable Unavailable [place], Diana Xiao HOME SERVICE DIRECTOR Unavailable Unavailable [place], Diana Xiao HOME SERVICE DIRECTOR Unavailable Unavailable Re-disclosure Warning The records that [...] is protected by Article 27-F of the [facility] Public Health law. If you continue you may have access to information: Regarding HIV / AIDS; Provided by facilities licensed or operated by the [facility] Office of Mental Health; or Provided by the [facility] Office for People With Developmental Disabilities. If such information is present, then the following [facility] mandated warning applies: This information has been [...] law may result in a fine or group home sentence or both. A general authorization for the release of medical or other information is NOT sufficient authorization for further disc losure. Family History Family Member Name Family Member Gender Family Member Status Date o f Status Description Data Source(s) Unknown Unknown Problem [facility] ([facility]) father (colon, skin, prostate) Unknown Unknown Problem [facility] ([facility]) Unknown Female Problem [facility] ([facility]) Unknown Unknown Encounters Encounter Providers Location Date Indications Data Source(s ) Outpatient Attender: Ninoska Korin [facility] Main Office 05/12/2021 01:15:00 PM EDT [facility] Outpatient Attender: Suresh Hilton 02:00:00 PM EDT [facility] ([facility] ) Immunizations Vaccine Date Status Description Data Source(s) COVID-19 VACC, MRNA(PFIZER)/PF 06/13/2021 12:00:00 AM EDT completed [facility] COVID-19 VACCINE Pfizer 06/13/2021 12:00:00 AM EDT completed [facility] Vaccine Series Complete: YESThis Data wa s Submitted to [facility] Via [employer]. COVID-19 VACCINE Pfizer 12/03/2020 12:00:00 AM EDT completed [facility] Vaccine Series Complete: YESThis Data wa s Submitted to [facility] Via [employer]. COVID-19 VACCINE Pfizer 11/12/2020 12:00:00 AM EST completed [facility] Vaccine Series Complete: NOThis Data was Submitted to [facility] Via [employer]. Influenza, injectable, MDCK, preservative free, eren valent 07/16/2020 02:07:00 PM EDT completed [facility]) Medications Medication Brand Name Start Date Product Form Dose Route Admi nistrative Instructions Pharmacy Instructions Status Indications Reaction Description Data Source(s) potassium nitrate 0.05 MG/MG / Sodium Fl uoride 0.011 MG/MG Toothpaste [Prevident 5000 Sensitive] 1.1-5 % SODIUM FLUORIDE/POTASSIUM NIT 06/20/2021 12:00:00 AM EDT paste 200 USE TO BRUSH TEETH THREE JOSELYN ES A DAY DIRECTED USE TO BRUSH TEETH THREE TIMES A DAY DIRECTED SOLD: 06/20/2021 [facility] 62.5 mcg/actuation 05/16/2021 12:00:00 AM EDT blister with d evice 90 INHALE ONE PUFF BY MOUTH EVERY DAY INHALE ONE PUFF BY MOUTH EVERY DAY SOLD: 05/18/2021 [facility] 500 mg 12/10/2020 12:00:00 AM EDT capsule 28 TAKE ONE CAPSULE BY MOUTH EVERY 6 HOURS UNTIL GONE TAKE ONE CAPSULE BY MOUTH EVERY 6 HOURS UNTIL GONE OLIVER [facility] Immunization Adminstration,1 Vaccine/Toxoid 07/16/2020 12:00 :00 AM EDT completed [facility] ([facility]) Medication administered onsite 62.5 mcg/actuation 04/12/2020 12:00:00 AM EDT blister with d evice 30 INHALE ONE PUFF BY MOUTH EVERY DAY INHALE ONE PUFF BY MOUTH EVERY DAY SOLD: 10/29/2020 [facility] 62.5 mcg/actuation 04/12/2020 12:00:00 AM EDT blister with d evice 30 INHALE ONE PUFF BY MOUTH EVERY DAY INHALE ONE PUFF BY MOUTH EVERY DAY SOLD: 08/27/2020 [facility] 62.5 mcg/actuation 04/12/2020 12:00:00 AM EDT blister with d evice 30 INHALE ONE PUFF BY MOUTH EVERY DAY INHALE ONE PUFF BY MOUTH EVERY DAY SOLD: 04/02/2021 [facility] Insurance Providers Payer name Policy type / Coverage type Policy ID Covered alliance party ID Covered alliance party's relationship to baugh Policy Baugh Plan Information POMCO [id number] WI2 [id number] POMCO [id number] WI2 [id number] POMCO [id number] [place]2 [id number] UMR U [id number] Spouse [id number] UMR U [id number] Spouse [id number] UMR [facility] [id number] [place]2 [id number] UMR [facility] [id number] [place]2 [id number] Umr ([place]) Commercial [id number] Family Dependent [id number] Umr (pr) Commercial [id number] Family Dependent [id number] Umr [employer] Ppo Commercial [id number] Family Dependent [id number] [employer] Commercial [id number] Family Dependent [id number] [employer] (pr) Medigap Part B [id number] Family Dependent [id number] [employer] Ppo Commercial [id number] Family Dependent [id number] [employer] Ppo Commercial [id number] Family Dependent [id number] [employer] Ppo Commercial [id number] Family Dependent [id number] [employer] Health Maintenance Organization (HMO) [id number] Family Dependent [id number] [employer] (pr) Commercial [id number] Self [employer] Ppo Commercial [id number] Family Dependent 91 [id number] [place]/Umr (Old) Medigap Part B [id number] Family Dependent [id number] [employer] Commercial [id number] Family Dependent UMR O [id number] S [id number] [employer] PPO P [id number] P [id number] [employer]OM[employer]-O/P [id number] Problems, Conditions, and Diagnoses No Information Surgeries/Procedures Procedure Description Date Indications Data Source(s) OFFICE OUTPATIENT VISIT 25 MINUTES 05/12/2021 12:00:00 AM EDT [facility] ([facility]) Colonoscopy 10/22/2020 12:00:00 AM EST M SINDHU ([facility]) ECG ROUTINE ECG W/LEAST 12 LDS W/I&R 07/16/2020 12:00: 00 AM EDT [facility] ([facility]) Results ID Date Data Source [id number] 10/17/2020 08:20:00 AM EST [facility] Name Value Range Interpretation Code Description Data Lisa rce(s) Supporting Document(s) SARS coronavirus 2 [facility]ed [facility] lab was ordered by [facility] and reported by [facility]. ID Date Data Source [id number] 07/16/2020 02:35:00 PM EDT [facility] ([facility]) Name Value Range Interpretation Code Description Data Lisa rce(s) Supporting Document(s) Prostate specific Ag [Mass/volume] in Serum or Plasma 1.80 ng/mL [facility] ([facility]) This assay was performed on the Siemens Dimension EXL using the B- Galactosidase/CPRG methodology and should not be compared interchangeably with other methods. The PSA should not be used alone as a screening test for the presence or absence of malignant disease. ID Date Data Source [id number] 07/16/2020 02:35:00 PM EDT [facility] ([facility]) Name Value Range Interpretation Code Description Data Lisa rce(s) Supporting Document(s) Cholesterol [Mass/volume] in Serum or Plasma 194 mg/dL 131-200 [facility] ([facility]) Cholesterol in LDL [Mass/volume] in Serum or Plasma by calcu lation 115 CALC 50-159 [facility] ([facility]) Triglyceride [Mass/volume] in Serum or Plasma 154 mg/dL 30-150 [facility] ([facility]) Cholesterol in HDL [Mass/volume] in Serum or Plasma 48 mg/dL 35-60 [facility] ([facility]) ID Date Data Source [id number] 07/16/2020 02:35:00 PM EDT [facility] ([facility]) Name Value Range Interpretation Code Description Data Lisa rce(s) Supporting Document(s) Urea nitrogen [Mass/volume] in Serum or Plasma 10 mg/dL 7-18 [facility] ([facility]) Glucose [Mass/volume] in Serum or Plasma 112 mg/dL 74-99 [facility] ([facility]) 100-125 mg/dL PRE-DIABETES/FASTING >126 mg/dL DIABETES/FASTING Creatinine 1.1 mg/dL 0.6-1.3 [facility] Sodium [Moles/volume] in Serum or Plasma 136 meq/L 136-145 [facility] ([facility]) Potassium [Moles/volume] in Serum or Plasma 3.8 meq/L 3.5-5.1 [facility] ([facility]) Carbon dioxide, total [Moles/volume] in Serum or Plasma 32 meq/L 21 -32 [facility] ([facility]) Chloride [Moles/volume] in Serum or Plasma 99 meq/L 98-107 [facility] ([facility]) Calcium [Mass/volume] in Serum or Plasma 8.8 mg/dL 8.5-10.1 [facility] ([facility]) Alkaline phosphatase isoenzyme [Units/volume] in Serum or Pl asma 76 mg/dL 46-116 [facility] ([facility]) Aspartate aminotransferase [Enzymatic activity/volume] in Serum or Plasma 59 U/L 15-37 [facility] ([facility] ) Total Bilirubin 1.9 mg/dL 0.2-1.0 [facility] ([facility]) NOTE: T.BILI,AST, VERIFIED Alanine aminotransferase [Enzymatic activity/volume] in Seru m or Plasma 64 U/L 12-78 [facility] ([facility]) Proteinase 3 Ab [Units/volume] in Serum 7.4 g/dL 6.4-8.2 [facility] ([facility]) Albumin [Mass/volume] in Serum or Plasma 3.8 g/dL 3.4-5.0 [facility] ([facility]) A/G Ratio 1.06 CALC 1.00-1.90 [facility] ([facility]) Glomerular filtration rate/1.73 sq M pre dicted among non-blacks [Volume Rate/Area] in Serum or Plasma by Creatinine-based formula (MDRD) Laboratory test result [facility] ([facility] ) Glomerular filtration rate/1.73 sq M pre dicted among blacks [Volume Rate/Area] in Serum or Plasma by Creatinine-based formula (MDRD) Laboratory test result [facility] ([facility]) <content>CHRONIC KIDNEY DISEASE STAGING PER NKF</content>
<content></content>
<content>STAGE I & II GFR >= 60 NORMAL TO MILDLY DECREASED</content>
<content>STAGE III GFR 30-59 MODERATELY DECREASED</content>
<content>STAGE IV GFR 15-29 SEVERELY DECREASED</content>
<content>STAGE V GFR <15 VERY LITTLE GFR LEFT</content>
<content>ESRD GFR <15 ON BARTENDER HELPER</content>
<content></content> ID Date Data Source [id number] 07/16/2020 02:35:00 PM EDT [facility] Name Value Range Interpretation Code Description Data Lisa rce(s) Supporting Document(s) Glucose mean value [Mass/volume] in Blood Estimated fr om glycated hemoglobin 111 mg/dL 60-110 [facility] Hemoglobin A1c/Hemoglobin.total in Blood 5.5 % [facility] ([facility] Lab Result Notes: Pre-Diabetes 5.7 - 6.4 % Diabetes = or > 6.5% ID Date Data Source [id number] 07/16/2020 02:35:00 PM EDT [facility] ([facility]) Name Value Range Interpretation Code Description Data Lisa rce(s) Supporting Document(s) Leukocytes [#/volume] in Blood by Automated count 8.7 x10*3/UL 4.1-10 .9 [facility] ([facility] NOTE: RESULT VERIFIED. Erythrocytes [#/volume] in Blood by Automated count 5.36 x10*6/UL 4.2 0-6.30 [facility] ([facility] Hemoglobin [Mass/volume] in Blood 19.0 g/dL 12.0-18.0 [facility] ([facility] MCV 104.4 fL 80.0-97.0 [facility] ([facility]) Hematocrit [Volume Fraction] of Blood by Automated count 56.0 % 3 7.0-51.0 [facility] ([facility]) MCH 35.5 pg 26.0-32.0 [facility] ([facility]) Erythrocyte distribution width [Ratio] by Automated count 13.9 % 11.6-13.7 [facility] ([facility] MCHC 34.0 g/dL 31.0-38.0 [facility] ([facility]) MPV 7.4 FL 7.8-11.0 [facility]) Mid % 5.0 % 1.7-9.3 [facility] Platelets [#/volume] in Blood by Automated count 240 x10*3/UL 140-440 [facility] ([facility]) Lymph % 18.9 % 10.0-58.5 [facility] Mid # 0.5 x10*3/UL 0.1-0.6 [facility] ([facility]) Lymph # 1.6 x10*3/UL 0.6-4.1 [facility] ([facility]) Neut % 76.1 % 37.0-92.0 [facility] Neut # 6.6 x10*3/UL 2.0-7.8 [facility] ([facility]) Procedure Social History No Information Vital Signs ID Date Data Source UNK Name Value Range Interpretation Code Description Data Source(s) Systolic blood pressure 124 mm[Hg] 124 mm[Hg] [facility] Diastolic blood pressure 82 mm[Hg] 82 mm[Hg] [facility] ([facility]) Body weight 250.00 [lb_av] 250.00 [lb_av] MEDEN T ([facility]) Body height 74 [in_i] 74 [in_i] [facility] ([facility]) 6'2" Body mass index (BMI) [Ratio] 32.1 kg/m2 32.1 k g/m2 [facility] ([facility]) Systolic blood pressure 136 mm[Hg] 136 mm[Hg] [facility]) Diastolic blood pressure 80 mm[Hg] 80 mm[Hg] [facility] ([facility]) Heart rate 72 /min 72 /min [facility] ([facility]) Body height 73.25 [in_i] 73.25 [in_i] [facility] ( [facility]) 6'1.25" Body weight 256.00 [lb_av] 256.00 [lb_av] MEDEN T ([facility]) Body mass index (BMI) [Ratio] 33.5 kg/m2 33.5 k g/m2 [facility] ([facility])
[2021-08-01] MEDS ORDERED: PREVPST (18:05)
--- OUTSIDE RECORDS SUMMARY | 2021-08-01 21:32 | CCD ---
Author Author [facility] Organization [facility] Address Unknown Phone Unavailable Care Team Providers Care Clinical Mental Health Counselor Name Role Phone Prince Cooper MD [...] Unavailable Unavailable Prince Cooper MD Unavailable Unavailable West ChazyPrince MD Unavailable Unavailable KennethPrince MD Unavailable Unavailable KennethPrince MD Unavailable Unavailable KennethPrince MD Unavailable Unavailable KennethPrince MD Unavailable Unavailable KennethPrince MD Unavailable Unavailable [place] ChazyPrince MD Unavailable Unavailable KennethPrince MD Unavailable Unavailable [place] ChazyPrince MD Unavailable Unavailable KennethPrince MD Unavailable Unavailable KennethPrince MD Unavailable Unavailable [place] ChazyPrince MD Unavailable Unavailable [place] ChazyPrince MD Unavailable Unavailable KennethPrince MD Unavailable Unavailable KennethPrince MD Unavailable Unavailable [place] ChazyPrince MD Unavailable Unavailable [place] ChazyPrince MD Unavailable Unavailable KennethPrince MD Unavailable Unavailable KennethPrince MD Unavailable Unavailable [place] ChazyPrince MD Unavailable Unavailable KennethPrince MD Unavailable Unavailable KennethPrince MD Unavailable Unavailable KennethPrince MD Unavailable Unavailable KennethPrince MD Unavailable Unavailable [place] ChazyPrince MD Unavailable Unavailable KennethPrince MD Unavailable Unavailable [place] ChazyPrince MD Unavailable Unavailable [place] ChazyPrince MD Unavailable Unavailable KennethPrince MD Unavailable Unavailable KennethPrince MD Unavailable Unavailable KennethPrince MD Unavailable Unavailable KennethPrinec MD Unavailable Unavailable KennethPrince MD Unavailable Unavailable KennethPrince MD Unavailable Unavailable KennethPrince MD Unavailable Unavailable [place] ChazyPrince layne MD Unavailable Unavailable KennethPrince MD Unavailable Unavailable [place] ChazyPrince MD Unavailable Unavailable [place] ChazyPrince MD Unavailable Unavailable KennethPrince MD Unavailable Unavailable KennethPrince MD Unavailable Unavailable [place] ChazyPrince MD Unavailable Unavailable [place] ChazyPrince layne MD Unavailable Unavailable KennethPrince MD Unavailable Unavailable [place] ChazyPrince MD Unavailable Unavailable KennethPrince MD Unavailable Unavailable [place] ChazyPrince MD Unavailable Unavailable [place] ChazyPrince MD Unavailable Unavailable KennethPrince MD Unavailable Unavailable KennethPrince MD Unavailable Unavailable [place] ChazyPrince MD Unavailable Unavailable [place] ChazyPrince MD Unavailable Unavailable [place] ChazyPrince MD Unavailable Unavailable [place] ChazyPrince MD Unavailable Unavailable [place] ChazyPrince MD Unavailable Unavailable KennethPrince layne MD Unavailable Unavailable Prince Cooper MD Unavailable Unavailable Prince Cooper MD Unavailable Unavailable Prince Cooper MD Unavailable Unavailable Prince Cooper MD Unavailable Unavailable Prince Cooper MD Unavailable Unavailable Prince Cooper MD Unavailable Unavailable Prince Cooper MD Unavailable Unavailable [place], Maryann HEALTH CARE MARKETING SPECIALIST Unavailable Unavailable [place], Maryann HEALTH CARE MARKETING SPECIALIST Unavailable Unavailable [place], Maryann HEALTH CARE MARKETING SPECIALIST Unavailable Unavailable [place], Maryann HEALTH CARE MARKETING SPECIALIST Unavailable Unavailable [place], Maryann HEALTH CARE MARKETING SPECIALIST Unavailable Unavailable [place], Maryann HEALTH CARE MARKETING SPECIALIST Unavailable Unavailable [place], Maryann HEALTH CARE MARKETING SPECIALIST Unavailable Unavailable [place], Maryann HEALTH CARE MARKETING SPECIALIST Unavailable Unavailable [place], Maryann HEALTH CARE MARKETING SPECIALIST Unavailable Unavailable [place], Maryann HEALTH CARE MARKETING SPECIALIST Unavailable Unavailable [place], Maryann HEALTH CARE MARKETING SPECIALIST Unavailable Unavailable [place], Maryann HEALTH CARE MARKETING SPECIALIST Unavailable Unavailable [place], Maryann HEALTH CARE MARKETING SPECIALIST Unavailable Unavailable [place], Maryann HEALTH CARE MARKETING SPECIALIST Unavailable Unavailable [place], Maryann HEALTH CARE MARKETING SPECIALIST Unavailable Unavailable [place], Maryann HEALTH CARE MARKETING SPECIALIST Unavailable Unavailable [place], Maryann HEALTH CARE MARKETING SPECIALIST Unavailable Unavailable [place], Maryann HEALTH CARE MARKETING SPECIALIST Unavailable Unavailable [place], Maryann HEALTH CARE MARKETING SPECIALIST Unavailable Unavailable [place], Maryann HEALTH CARE MARKETING SPECIALIST Unavailable Unavailable [place], Maryann HEALTH CARE MARKETING SPECIALIST Unavailable Unavailable [place], Maryann HEALTH CARE MARKETING SPECIALIST Unavailable Unavailable [place], Maryann HEALTH CARE MARKETING SPECIALIST Unavailable Unavailable [place], Maryann HEALTH CARE MARKETING SPECIALIST Unavailable Unavailable [place], Maryann HEALTH CARE MARKETING SPECIALIST Unavailable Unavailable [place], Maryann HEALTH CARE MARKETING SPECIALIST Unavailable Unavailable [place], Maryann HEALTH CARE MARKETING SPECIALIST Unavailable Unavailable [place], Maryann HEALTH CARE MARKETING SPECIALIST Unavailable Unavailable [place], Maryann HEALTH CARE MARKETING SPECIALIST Unavailable Unavailable [place], Maryann HEALTH CARE MARKETING SPECIALIST Unavailable Unavailable [place], Maryann HEALTH CARE MARKETING SPECIALIST Unavailable Unavailable [place], Maryann HEALTH CARE MARKETING SPECIALIST Unavailable Unavailable [place], Maryann HEALTH CARE MARKETING SPECIALIST Unavailable Unavailable [place], Diana Xiao HEALTH CARE MARKETING SPECIALIST Unavailable Unavailable [place], Diana Xiao HEALTH CARE MARKETING SPECIALIST Unavailable Unavailable [place], Diana Xiao HEALTH CARE MARKETING SPECIALIST Unavailable Unavailable Re-disclosure Warning The records that [...] is protected by Article 27-F of the [facility] Public Health law. If you continue you may have access to information: Regarding HIV / AIDS; Provided by facilities licensed or operated by the [facility] Office of Mental Health; or Provided by the [facility] Office for People With Developmental Disabilities. If such information is present, then the following [facility] mandated warning applies: This information has been [...] law may result in a fine or skilled nursing sentence or both. A general authorization for [...] [facility]) Unknown Female Problem [facility] ([facility]) Unknown Unknown Encounters Encounter Providers Location Date Indications Data Source(s ) Outpatient Attender: Ninoska Korin [facility] Main Office 05/12/2021 01:15:00 PM EDT [facility] ([facility] Outpatient Attender: Suresh Hilton 02:00:00 PM EDT [facility] ([facility] ) Immunizations Vaccine Date Status Description Data Source(s) COVID-19 VACC, MRNA(PFIZER)/PF 06/13/2021 12:00:00 AM EDT completed [facility] COVID-19 VACCINE Pfizer 06/13/2021 12:00:00 AM EDT completed [facility] Vaccine Series Complete: YESThis Data wa s Submitted to [facility]. COVID-19 VACCINE Pfizer 12/03/2020 12:00:00 AM EDT completed [facility] Vaccine Series Complete: YESThis Data wa s Submitted to [facility]. COVID-19 VACCINE Pfizer 11/12/2020 12:00:00 AM EST completed [facility] Vaccine Series Complete: NOThis Data was Submitted to [facility]. Influenza, injectable, MDCK, preservative free, eren valent 07/16/2020 02:07:00 PM EDT completed [facility] ([facility]) Medications Medication Brand Name Start Date Product [...] type / Coverage type Policy ID Covered republican ID Covered republican's relationship to baugh Policy Baugh Plan Information POMCO [id number] WI2 [id number] POMCO [id number] WI2 [id number] POMCO [id number] WI2 [id number] UMR U [id number] Spouse [id number] UMR U [id number] Spouse [id number] UMR [facility] [id number] WI2 [id number] UMR [facility] [id number] WI2 [id number] Umr ([place]) Commercial [id number] Family Dependent [id number] Umr (pr) Commercial [id number] Family Dependent [id number] Umr [employer] Ppo Commercial [id number] Family Dependent [id number] [employer] Commercial [id number] Family Dependent [id number] [employer] (pr) Medigap Part B [id number] Family Dependent [id number] [employer] Ppo Commercial [id number] Family Dependent [id number] [employer] Ppo Commercial [id number] Family Dependent [id number] [employer] Ppo Commercial [id number] Family Dependent [id number] [employer] Health Maintenance Organization (HMO) [id number] Family Dependent [id number] [employer] (pr) Commercial [id number] Self [employer] Ppo Commercial [id number] Family Dependent 91 0 [place]/Umr (Old) Medigap Part B [id number] Family Dependent [id number] [employer] Commercial [id number] Family Dependent UMR O [id number] S [id number] [employer] PPO P [id number] P [id number] [employer]OM[employer]-O/P [id number] 01 [id number] Problems, Conditions, and Diagnoses No Information Surgeries/Procedures Procedure Description Date Indications Data Source(s) OFFICE OUTPATIENT VISIT 25 MINUTES 05/12/2021 12:00:00 AM EDT [facility] ([facility]) Colonoscopy 10/22/2020 12:00:00 AM EST M SIND[facility] ([facility]) ECG ROUTINE ECG W/LEAST 12 LDS W/I&R 07/16/2020 12:00: 00 AM EDT [facility] ([facility]) Results ID Date Data Source [id number] 10/17/2020 08:20:00 AM EST [facility] Name Value Range Interpretation Code Description Data Lisa rce(s) Supporting Document(s) SARS coronavirus 2 RNA [facility]ed [facility] by [facility] and reported by [facility]. ID Date Data Source [id number] 07/16/2020 02:35:00 PM EDT [facility] ([facility]) Name Value Range Interpretation Code Description Data Lisa rce(s) Supporting Document(s) Prostate specific Ag [Mass/volume] in Serum or Plasma 1.80 ng/mL [facility] ([facility]) This assay was performed on the Siemens Dimension EXL using the B- Galactosidase/CPRG methodology and should not be compared interchangeably with other methods. The PSA should not be used alone as a screening test for the presence or absence of malignant disease. ID Date Data Source [id number] 07/16/2020 02:35:00 PM EDT [facility] ([facility]) Name Value Range Interpretation Code Description Data Lisa rce(s) Supporting Document(s) Cholesterol [Mass/volume] in Serum or Plasma 194 mg/dL 131-200 [facility] ([facility]) Cholesterol in LDL [Mass/volume] in Serum or Plasma by calcu lation 115 CALC 50-159 [facility] ([facility]) Triglyceride [Mass/volume] in Serum or Plasma 154 mg/dL 30-150 [facility] ([facility]) Cholesterol in HDL [Mass/volume] in Serum or Plasma 48 mg/dL 35-60 [facility] ([facility]) ID Date Data Source [id number] 07/16/2020 02:35:00 PM EDT [facility] ([facility]) Name Value Range Interpretation Code Description Data Lisa rce(s) Supporting Document(s) Urea nitrogen [Mass/volume] in Serum or Plasma 10 mg/dL 7-18 [facility] ([facility]) Glucose [Mass/volume] in Serum or Plasma 112 mg/dL 74-99 [facility] ([facility]) 100-125 mg/dL PRE-DIABETES/FASTING >126 mg/dL DIABETES/FASTING Creatinine 1.1 mg/dL 0.6-1.3 [facility]) Sodium [Moles/volume] in Serum or Plasma 136 meq/L 136-145 [facility] ([facility]) Potassium [Moles/volume] in Serum or Plasma 3.8 meq/L 3.5-5.1 [facility] ([facility]) Carbon dioxide, total [Moles/volume] in Serum or Plasma 32 meq/L 21 -32 [facility] ([facility]) Chloride [Moles/volume] in Serum or Plasma 99 meq/L 98-107 [facility] ([facility]) Calcium [Mass/volume] in Serum or Plasma 8.8 mg/dL 8.5-10.1 [facility] ([facility]) Alkaline phosphatase isoenzyme [Units/volume] in Serum or Pl asma 76 mg/dL 46-116 [facility] ([facility]) Aspartate aminotransferase [Enzymatic activity/volume] in Serum or Plasma 59 U/L 15-37 [facility] ([facility] ) Total Bilirubin 1.9 mg/dL 0.2-1.0 [facility] ([facility]) NOTE: T.BILI,AST, VERIFIED Alanine aminotransferase [Enzymatic activity/volume] in Seru m or Plasma 64 U/L 12-78 [facility] ([facility]) Proteinase 3 Ab [Units/volume] in Serum 7.4 g/dL 6.4-8.2 [facility] ([facility]) Albumin [Mass/volume] in Serum or Plasma 3.8 g/dL 3.4-5.0 [facility] ([facility]) A/G Ratio 1.06 CALC 1.00-1.90 [facility] ([facility]) Glomerular filtration rate/1.73 sq M pre dicted among non-blacks [Volume Rate/Area] in Serum or Plasma by Creatinine-based formula (MDRD) Laboratory test result [facility] ([facility] ) Glomerular filtration rate/1.73 sq M pre dicted among blacks [Volume Rate/Area] in Serum or Plasma by Creatinine-based formula (MDRD) Laboratory test result [facility] ([facility]) <content>CHRONIC KIDNEY DISEASE STAGING PER NKF</content>
<content></content>
<content>STAGE I & II GFR >= 60 NORMAL TO MILDLY DECREASED</content>
<content>STAGE III GFR 30-59 MODERATELY DECREASED</content>
<content>STAGE IV GFR 15-29 SEVERELY DECREASED</content>
<content>STAGE V GFR <15 VERY LITTLE GFR LEFT</content>
<content>ESRD GFR <15 ON SHAKE OUT WORKER</content>
<content></content> ID Date Data Source [id number] 07/16/2020 02:35:00 PM EDT [facility] Name Value Range Interpretation Code Description Data Lisa rce(s) Supporting Document(s) Glucose mean value [Mass/volume] in Blood Estimated fr om glycated hemoglobin 111 mg/dL 60-110 [facility] Hemoglobin A1c/Hemoglobin.total in Blood 5.5 % [facility] ([facility]) Lab Result Notes: Pre-Diabetes 5.7 - 6.4 % Diabetes = or > 6.5% ID Date Data Source [id number] 07/16/2020 02:35:00 PM EDT [facility] Name Value Range Interpretation Code Description Data Lisa rce(s) Supporting Document(s) Leukocytes [#/volume] in Blood by Automated count 8.7 x10*3/UL 4.1-10 .9 [facility] NOTE: RESULT VERIFIED. Erythrocytes [#/volume] in Blood by Automated count 5.36 x10*6/UL 4.2 0-6.30 [facility] Hemoglobin [Mass/volume] in Blood 19.0 g/dL 12.0-18.0 [facility] MCV 104.4 fL 80.0-97.0 [facility] ([facility]) Hematocrit [Volume Fraction] of Blood by Automated count 56.0 % 3 7.0-51.0 [facility] ([facility]) MCH 35.5 pg 26.0-32.0 [facility] ([facility]) Erythrocyte distribution width [Ratio] by Automated count 13.9 % 11.6-13.7 [facility] ([facility]) MCHC 34.0 g/dL 31.0-38.0 [facility] ([facility]) MPV 7.4 FL 7.8-11.0 [facility]) Mid % 5.0 % 1.7-9.3 [facility] Platelets [#/volume] in Blood by Automated count 240 x10*3/UL 140-440 [facility] ([facility]) Lymph % 18.9 % 10.0-58.5 [facility]) Mid # 0.5 x10*3/UL 0.1-0.6 [facility] ([facility]) Lymph # 1.6 x10*3/UL 0.6-4.1 [facility] ([facility]) Neut % 76.1 % 37.0-92.0 [facility] Neut # 6.6 x10*3/UL 2.0-7.8 [facility] ([facility]) Procedure Social History No Information Vital Signs ID Date Data Source UNK Name Value Range Interpretation Code Description Data Source(s) Systolic blood pressure 124 mm[Hg] 124 mm[Hg] [facility] ([facility]) Diastolic blood pressure 82 mm[Hg] 82 mm[Hg] [facility] ([facility]) Body weight 250.00 [lb_av] 250.00 [lb_av] [facility] ([facility]) Body height 74 [in_i] 74 [in_i] [facility] ([facility]) 6'2" Body mass index (BMI) [Ratio] 32.1 kg/m2 32.1 k g/m2 [facility] Systolic blood pressure 136 mm[Hg] 136 mm[Hg] [facility] Body height 73.25 [in_i] 73.25 [in_i] [facility] ( [facility]) 6'1.25" Body weight 256.00 [lb_av] 256.00 [lb_av] MED[facility] T ([facility]) Body mass index (BMI) [Ratio] 33.5 kg/m2 33.5 k g/m2 [facility] ([facility]) Diastolic blood pressure 80 mm[Hg] 80 mm[Hg] [facility] ([facility]) Heart rate 72 /min 72 /min [facility] ([facility])
== END 2021-08-01 21:25 | disposition left against medical advice (07) ==
LOC: M ED 17:50
DX: Z53.29 Procedure and treatment not carried out because of patient's decision for other reasons (principal)

== ENCOUNTER → 2021-10-11 | Outpatient (CLI) | payer MEDICARE, OTHER ==
[~2021-10-11] MED LIST changes: +PREVPST
== END ==
LOC: M RAD 14:30
PROVIDERS: ATTEND Internal Medicine
DX: Z12.2 Encounter for screening for malignant neoplasm of respiratory organs (principal); F17.210 Nicotine dependence, cigarettes, uncomplicated

== ENCOUNTER → 2021-11-01 | Outpatient (CLI) | payer MEDICARE, OTHER | LOC: M WUC 14:24 | PROVIDERS: ATTEND Internal Medicine | DX: M25.78 Osteophyte, vertebrae (principal); M43.16 Spondylolisthesis, lumbar region ==

== ENCOUNTER → 2021-12-13 | Outpatient (CLI) | payer MEDICARE, OTHER | LOC: M PLAIMG 10:55 | PROVIDERS: ATTEND Physician Assistant | DX: M51.36 Other intervertebral disc degeneration, lumbar region (principal) ==

== ENCOUNTER → 2022-11-02 | Outpatient (CLI) | payer MEDICARE, OTHER | LOC: M RAD 12:23 | PROVIDERS: ATTEND Internal Medicine | DX: Z87.891 Personal history of nicotine dependence (principal) ==

== ENCOUNTER → 2023-10-25 | Outpatient (REF) | payer MEDICARE, OTHER ==
[2023-10-25 18:44] LABS: FERRITIN 56.5 NG/ML (10.5-307.3)
[2023-10-25 19:16] LABS: HEPATITIS C VIRUS ABY INDEX < 0.02 INDEX (<0.8)
== END ==
LOC: M LAB REF 17:18
PROVIDERS: ATTEND Internal Medicine
DX: K76.0 Fatty (change of) liver, not elsewhere classified (principal)

== ENCOUNTER → 2023-11-06 | Outpatient (CLI) | payer MEDICARE, OTHER | LOC: M RAD 07:48 | PROVIDERS: ATTEND Internal Medicine | DX: K76.0 Fatty (change of) liver, not elsewhere classified (principal) ==

== ENCOUNTER → 2023-11-07 | Outpatient (CLI) | payer MEDICARE, OTHER | LOC: M RAD 14:27 | PROVIDERS: ATTEND Internal Medicine | DX: F17.210 Nicotine dependence, cigarettes, uncomplicated (principal) ==

== ENCOUNTER → 2023-11-22 | Outpatient (REF) | payer MEDICARE, OTHER ==
[2023-11-23 09:08] LABS: ERYTHROPOIETIN 8.3 mIU/mL (2.6-18.5)
[2023-11-23 16:01] LABS: JAK2 MUTATIONS FOR PATH SENDOU See Pathology Report
== END ==
LOC: M LAB REF 11:44
PROVIDERS: ATTEND Internal Medicine
DX: D45 Polycythemia vera (principal)

== ENCOUNTER 2024-02-26 08:27 | Day surgery (SDC) | payer MEDICARE, OTHER ==
[~2024-02-26] VITALS: Ht 188 cm; Wt 108.0 kg
[~2024-02-26 08:27] MED LIST changes: -INCR1INH; +INCR1INH INH; +TIOT18INH INH
[2024-02-26] MEDS: NS 1,000 ML IV ONE (09:14)
[2024-02-26] MEDS ORDERED: propofoL 500 MG/50 ML VIAL As Ordered ONE (09:42)
[2024-02-26 10:25] VITALS: BP 140/82; TEMP 98.2; O2SAT 95
== END 2024-02-26 10:33 | disposition home or self-care (01) ==
LOC: M OPP 08:27
PROVIDERS: ATTEND Internal Medicine Gastroenterology
DX: Z12.11 Encounter for screening for malignant neoplasm of colon (principal); Z86.010 Personal history of colon polyps; Z80.0 Family history of malignant neoplasm of digestive organs; D12.5 Benign neoplasm of sigmoid colon; D12.2 Benign neoplasm of ascending colon; K64.8 Other hemorrhoids; K55.20 Angiodysplasia of colon without hemorrhage; F17.200 Nicotine dependence, unspecified, uncomplicated; J44.9 Chronic obstructive pulmonary disease, unspecified; Z79.51 Long term (current) use of inhaled steroids; Z79.82 Long term (current) use of aspirin

== ENCOUNTER → 2024-04-21 | Outpatient (REF) | payer MEDICARE, OTHER | LOC: M LAB REF 16:18 | PROVIDERS: ATTEND Internal Medicine | DX: K75.81 Nonalcoholic steatohepatitis (NASH) (principal) ==

== ENCOUNTER 2025-01-09 08:32 | Emergency (ER) | payer MEDICARE, OTHER ==
[~2025-01-09] VITALS: Ht 188 cm; Wt 113.1 kg
[2025-01-09] MEDS: METHOCARBAMOL 1,000 MG/10 ML VIAL IV ONE (11:30)
[2025-01-09] MEDS: KETOROLAC 30 MG/ML 1ML VIAL IV ONE (11:30)
[2025-01-09] MEDS: LIDOCAINE 5% (LIDODERM) PATCH TD ONE (11:30)
[2025-01-09] MEDS ORDERED: LIDO5DIS41 TOP (12:37)
[2025-01-09] MEDS ORDERED: METH-1164 PO (12:37)
[2025-01-09 12:50] VITALS: BP 174/91; TEMP 97.9; O2SAT 97
== END 2025-01-09 13:48 | disposition home or self-care (01) ==
LOC: M ED 08:32
DX: M62.830 Muscle spasm of back (principal); J44.9 Chronic obstructive pulmonary disease, unspecified; F17.210 Nicotine dependence, cigarettes, uncomplicated; F12.10 Cannabis abuse, uncomplicated; F10.10 Alcohol abuse, uncomplicated; Z79.1 Long term (current) use of non-steroidal anti-inflammatories (NSAID); Z79.899 Other long term (current) drug therapy
CPT/HCPCS: 72128; 72131; 96374; 99284; J1885; J2800

== ENCOUNTER → 2025-01-27 | Outpatient (CLI) | payer MEDICARE, OTHER ==
[~2025-01-27] MED LIST changes: +LIDO5DIS41 TOP; +METH-1164 PO
== END ==
LOC: M RAD 16:15
PROVIDERS: ATTEND Internal Medicine
DX: Z87.891 Personal history of nicotine dependence (principal)